=== PATIENT | female | born 1955 | race Caucasian/White ===

== ENCOUNTER → 2024-05-05 | Outpatient (CLI) | payer OTHER | END | disposition home or self-care (01) | LOC: RAH 12:45 | PROVIDERS: ATTEND Internal Medicine Cardiovascular Disease | DX: Z13.6 Encounter for screening for cardiovascular disorders (principal) | CPT/HCPCS: 75571 ==

== ENCOUNTER → 2024-11-07 | Outpatient (CLI) | payer MEDICARE ==
--- NOTE | 2024-11-07 15:25 | HMCIMG ---
US SOFT TISSUE GROIN REASON: postprocedural seroma of skin and subcutaneous tissue COMPARISON: None TECHNIQUE: Right groin ultrasound was performed at the site of previous procedure. FINDINGS: There is a well-circumscribed complex lesion measuring 7.7 x 5.9 x 6.6 cm. The lesion is predominantly cystic but with extensive internal septations and loculations. These findings are most consistent with a resolving hematoma. Seroma is considered less likely but also possible. The lesion is thin-walled, not typical for abscess. IMPRESSION: 1. 6.6 x 7.7 cm highly septated to well-circumscribed cystic lesion, resolving hematoma most likely, seroma also possible, abscess much less likely.
== END | disposition home or self-care (01) ==
LOC: RAH 13:53
PROVIDERS: ATTEND Student in an Organized Health Care Education/Training Program
DX: L76.34 Postprocedural seroma of skin and subcutaneous tissue following other procedure (principal)
CPT/HCPCS: 76882